=== PATIENT | female | born 1945 | race African-American/Black ===

== ENCOUNTER 2024-01-30 19:14 | Emergency (ER) | payer SELFPAY ==
[~2024-01-30] VITALS: Ht 154.9 cm; Wt 63.0 kg
[2024-01-30 19:16] VITALS: TEMP 97.9; O2SAT 98
[2024-01-30 19:46] VITALS: BP 173/89; PULSE 90; RESP 16
[2024-01-30] MEDS: HYDROCODONE/ACETAMINOPHEN 5/325MG TABLET PO ONE (19:46)
[2024-01-30] MEDS ORDERED: IBUP-2029 MT (20:01)
== END 2024-01-30 20:08 | disposition home or self-care (01) ==
LOC: ER 19:14
DX: S20.219A Contusion of unspecified front wall of thorax, initial encounter (principal); E78.00 Pure hypercholesterolemia, unspecified; I10 Essential (primary) hypertension; Z88.2 Allergy status to sulfonamides; V49.9XXA Car occupant (driver) (passenger) injured in unspecified traffic accident, initial encounter; Y93.89 Activity, other specified; Y92.89 Other specified places as the place of occurrence of the external cause; Y99.8 Other external cause status
CPT/HCPCS: 71045; 99283